=== PATIENT | male | born 1940 | race Hispanic/Latino ===

== ENCOUNTER 2022-03-27 23:11 | Emergency (ER) | payer MEDICARE ==
[~2022-03-27] VITALS: Ht 165.1 cm; Wt 79.4 kg
[2022-03-27 23:29] LABS: HEMATOCRIT 34.1 % (42-54); MEAN CORPUSCULAR HEMOGLOBIN 28.6 pg (27.0-33.0); MEAN CORPUSCULAR HGB CONC 34.9 g/dL (32.0-36.0); PLATELET COUNT (AUTO) 79 K/uL (130-400); RED BLOOD CELL COUNT(AUTO) 4.16 MIL/uL (4.50-6.20); RED CELL DISTRIBUTION WIDTH 13.7 % (11.0-15.5); WHITE BLOOD COUNT (AUTO) 15.6 K/uL (4.8-10.8)
[2022-03-27 23:38] LABS: APPEARANCE,URINE CLEAR (CLEAR); BILIRUBIN,URINE NEGATIVE (NEGATIVE); COLOR,URINE YELLOW (YELLOW); GLUCOSE, URINE (UA) NEGATIVE (NEGATIVE); KETONES,URINE 15 mg/dL (NEGATIVE); LEUKOCYTE ESTERASE ,URINE MODERATE (NEGATIVE); NITRATE,URINE POSITIVE (NEGATIVE); OCCULT BLOOD,URINE LARGE (NEGATIVE); PROTEIN,URINE 100 mg/dL (NEGATIVE)
[2022-03-27 23:45] LABS: CARBON DIOXIDE 25 mmol/L (21-32); CHLORIDE 101 mmol/L (101-111); CREATININE 0.8 mg/dL (0.5-1.5); GLOMERULAR FILTR. RATE CALC 98 mL/min (>60); GLUCOSE,RANDOM 118 mg/dL (70-105); POTASSIUM 3.4 mmol/L (3.5-5.1); SODIUM SERUM 136 mmol/L (136-145); UREA NITROGEN, BLOOD 17 mg/dL (7-18)
[2022-03-27 23:52] LABS: ALANINE AMINOTRANSFERASE 17 U/L (12-78); ALBUMIN 3.5 g/dL (3.5-5.0); ASPARTATE AMINOTRANSFERASE 29 U/L (10-37); TOTAL PROTEIN, SERUM 8.2 g/dL (6.0-8.3)
[2022-03-28 00:23] LABS: CREATINE KINASE, TOTAL 807 U/L (21-232)
[2022-03-28 00:32] LABS: RBC,URINE TNTC /HPF (0-1)
[2022-03-28 00:34] LABS: BACTERIA,URINE None Seen /HPF (None Seen); SQUAMOUS EPITHELIAL CELL,UR Few /HPF (0-2)
[2022-03-28 00:39] LABS: PROTHROMBIN TIME 10.9 SEC (9.6-11.6)
[2022-03-28 00:40] LABS: PARTIAL THROMBOPLASTIN TIME 32.1 SEC (26.3-35.5)
[2022-03-28 01:12] LABS: LYMPHOCYTES % (MANUAL) 16 % (22-44); MONOCYTES % (MANUAL) 3 % (2-9); SEGMENTED NEUTROPHILS % 81 % (40-70)
[2022-03-28 01:13] LABS: MAN.DIFF COMMENT-IMPRESSION MANUAL DIFFERENTIAL; PLATELET MORPHOLOGY COMMENT DECREASED
[2022-03-28] MEDS ORDERED: TRIAMCINOLONE ACETONIDE 40 MG/ML 1ML VIAL SQ ONE (01:30)
[2022-03-28] MEDS ORDERED: BUPIVACAINE/PF 0.5% 10ML VIAL IJ ONE (01:30)
[2022-03-28] MEDS ORDERED: KETOROLAC 15MG/ML VIAL (15MG/ML) IV ONE (01:30)
[2022-03-28] MEDS ORDERED: SOLU-MEDROL 40MG VIAL ONE (01:35)
[2022-03-28 01:51] VITALS: BP 142/75
[2022-03-28] MEDS ORDERED: 0.9%NACL 1000ML 1,000 ML IV ONE (02:05)
[2022-03-28] MEDS ORDERED: CYCL10TA16 PO (02:25)
[2022-03-28] MEDS ORDERED: IBUP-2070 PO (02:25)
== END 2022-03-28 02:35 | disposition home or self-care (01) ==
LOC: EDH 23:11
DX: S70.01XA Contusion of right hip, initial encounter (principal); M79.18 Myalgia, other site; I10 Essential (primary) hypertension; Z95.0 Presence of cardiac pacemaker; W19.XXXA Unspecified fall, initial encounter; Y93.89 Activity, other specified; Y92.89 Other specified places as the place of occurrence of the external cause; Y99.8 Other external cause status
CPT/HCPCS: 20552; 36415; 73502; 80053; 81001; 82550; 84484; 85025; 85610; 85730; 87077; 87088; 87186; 93005; 96374; J1885; J2920; J3301; J3490; J7030